=== PATIENT | female | born 1960 | race African-American/Black ===

== ENCOUNTER 2018-03-23 19:52 | Emergency (ER) | payer MEDICARE, MEDICAID ==
[~2018-03-23] VITALS: Ht 162.6 cm; Wt 82.0 kg
[2018-03-23] MEDS ORDERED: ACETAMINOPHEN 325MG TABLET PO ONE (22:45)
[2018-03-23] MEDS ORDERED: ACETAMINOPHEN 500MG TABLET PO NR (22:45)
[2018-03-23] MEDS ORDERED: METHOCARBAMOL 500MG TABLET PO ONE (22:45)
[2018-03-24 00:07] VITALS: BP 132/79
== END 2018-03-24 00:15 | disposition home or self-care (01) ==
LOC: ER 20:20
DX: S46.812A Strain of other muscles, fascia and tendons at shoulder and upper arm level, left arm, initial encounter (principal); F12.10 Cannabis abuse, uncomplicated; V43.52XA Car driver injured in collision with other type car in traffic accident, initial encounter; Y93.89 Activity, other specified; Y99.8 Other external cause status; Y92.89 Other specified places as the place of occurrence of the external cause; Z87.891 Personal history of nicotine dependence; Z90.49 Acquired absence of other specified parts of digestive tract; Z98.890 Other specified postprocedural states
CPT/HCPCS: 99283

== ENCOUNTER 2019-11-24 11:11 | Emergency (ER) | payer MEDICARE, MEDICAID ==
[~2019-11-24] VITALS: Ht 162.6 cm; Wt 78.0 kg
[2019-11-24] MEDS ORDERED: HYDR-4009 MT (11:39)
[2019-11-24] MEDS ORDERED: niacin (11:39)
[2019-11-24] MEDS ORDERED: esomeprazole (11:39)
[2019-11-24] MEDS ORDERED: NIAC500T13 MT (11:39)
[2019-11-24] MEDS ORDERED: MAGN400T26 MT (11:39)
[2019-11-24] MEDS ORDERED: GABA-531 MT (11:39)
[2019-11-24] MEDS ORDERED: ONDANSETRON HCL 4MG/2ML INJ IV STA (13:14)
[2019-11-24] MEDS ORDERED: SODIUM CHLORIDE 0.9% 1,000 ML IV ONE (13:14)
[2019-11-24] MEDS ORDERED: FAMOTIDINE 20MG/2ML VIAL IV ONE (13:15)
[2019-11-24 14:24] LABS: BASOPHILS % 1.1 % (0.0-2.0); HEMATOCRIT. 39.6 % (36.0-48.0); HEMOGLOBIN. 13.5 g/dL (12.0-16.0); LYMPHOCYTES % 28.5 % (20.0-50.0); MEAN CORPUSCULAR VOLUME 90.6 fL (81.0-99.0); MEAN PLATELET VOLUME 9.7 fl (7.4-10.4); MONOCYTES % 6.7 % (2.0-8.0); NEUTROPHILS % 62.7 % (40.0-76.0); PLATELET 219 x1000/uL (130-400); RED BLOOD CELL COUNT 4.37 mill/uL (4.2-5.4)
[2019-11-24 14:27] LABS: CHLORIDE 107 mEq/L (98-107)
[2019-11-24 14:34] LABS: ETHANOL BLOOD < 10 mg/dL
[2019-11-24] MEDS ORDERED: IOHEXOL-350 100 ML BOTTLE ONE (15:24)
[2019-11-24 15:30] LABS: CLARITY URINE CLEAR (CLEAR); COLOR URINE YELLOW (YELLOW); KETONES URINE NEGATIVE (NEGATIVE); LEUKOCYTE ESTERASE URINE TRACE (NEGATIVE); NITRITE URINE POSITIVE (NEGATIVE); OCCULT BLOOD URINE NEGATIVE (NEGATIVE); PROTEIN URINE NEGATIVE (NEGATIVE); SPECIFIC GRAVITY URINE 1.061 (1.005-1.030)
[2019-11-24] MEDS ORDERED: KETOROLAC 30MG/ML VIAL IV ONE (15:45)
[2019-11-24 15:54] LABS: *AMPHETAMINES SCREEN URINE NEGATIVE (NEGATIVE); *BARBITURATES SCREEN URINE NEGATIVE (NEGATIVE); *COCAINE SCREEN URINE NEGATIVE (NEGATIVE)
[2019-11-24 15:55] LABS: *BENZODIAZEPINES SCREEN URINE NEGATIVE (NEGATIVE); CANNABINOID URINE SCREEN PRESUMTIVE POSITIVE (NEGATIVE); METHADONE URINE SCREEN NEGATIVE (NEGATIVE); OPIATES URINE SCREEN NEGATIVE (NEGATIVE); PHENCYCLIDINE URINE SCREEN NEGATIVE (NEGATIVE)
[2019-11-24 16:52] VITALS: BP 112/69
== END 2019-11-24 16:53 | disposition home or self-care (01) ==
LOC: ER 11:37
DX: N39.0 Urinary tract infection, site not specified (principal)
CPT/HCPCS: 36415; 71045; 71275; 74174; 80053; 80305; 80320; 81003; 83690; 83880; 84484; 85025; 93005; 96374; 96375; 99284; J1885; J2405; J3490; J7030; Q9967; G0480

== ENCOUNTER 2022-05-05 17:03 | Emergency (ER) | payer MEDICARE, MEDICAID ==
[~2022-05-05] VITALS: Ht 162.6 cm; Wt 72.0 kg
[~2022-05-05 17:03] MED LIST: GABA-532 MT; HYDR-4009 MT; MAGN400T26 MT; NIAC-49 MT; esomeprazole; niacin
[2022-05-05] MEDS ORDERED: KETOROLAC 30MG/ML VIAL IV STA (21:37)
[2022-05-05] MEDS ORDERED: ONDANSETRON HCL 4MG/2ML INJ IV STA (21:37)
[2022-05-05] MEDS ORDERED: SODIUM CHLORIDE 0.9% 1,000 ML IV ONE (21:45)
[2022-05-05 22:16] LABS: CLARITY URINE CLOUDY (CLEAR); COLOR URINE DARK YELLOW (YELLOW); KETONES URINE 1+ (NEGATIVE); LEUKOCYTE ESTERASE URINE TRACE (NEGATIVE); NITRITE URINE NEGATIVE (NEGATIVE); OCCULT BLOOD URINE NEGATIVE (NEGATIVE); PH URINE 6.5 (4.5-8.0); PROTEIN URINE TRACE (NEGATIVE); SPECIFIC GRAVITY URINE 1.029 (1.005-1.030)
[2022-05-05 23:28] LABS: BASOPHILS % 0.6 % (0.0-2.0); EOSINOPHILS % 1.4 % (0.0-5.0); HEMATOCRIT. 38.8 % (36.0-48.0); HEMOGLOBIN. 12.8 g/dL (12.0-16.0); LYMPHOCYTES % 21.8 % (20.0-50.0); MEAN CORPUSCULAR HEMOGLOBIN 30.5 pg (28.0-32.0); MEAN CORPUSCULAR VOLUME 92.5 fL (81.0-99.0); MEAN PLATELET VOLUME 8.3 fl (7.4-10.4); MONOCYTES % 6.4 % (2.0-8.0); NEUTROPHILS % 69.8 % (40.0-76.0); PLATELET 199 x1000/uL (130-400)
[2022-05-05 23:30] LABS: CHLORIDE 109 mEq/L (98-107)
[2022-05-06] MEDS ORDERED: ONDA4TAB50 MT (01:18)
[2022-05-06 03:00] VITALS: BP 133/76
[2022-05-06] MEDS ORDERED: METR375C2 MT (03:30)
== END 2022-05-06 04:20 | disposition home or self-care (01) ==
LOC: ER 17:03
DX: N30.00 Acute cystitis without hematuria (principal); F12.10 Cannabis abuse, uncomplicated; Z87.19 Personal history of other diseases of the digestive system; Z98.890 Other specified postprocedural states
CPT/HCPCS: 36415; 74176; 80053; 81003; 83690; 85025; 93005; 96361; 96374; 96375; 99291; J1885; J2405; J7030

== ENCOUNTER 2023-10-25 05:48 | Emergency (ER) | payer BC, MEDICAID ==
[~2023-10-25] VITALS: Ht 162.6 cm; Wt 61.2 kg
[~2023-10-25 05:48] MED LIST changes: +METR375C2 MT; +ONDA4TAB50 MT
[2023-10-25 06:11] VITALS: O2SAT 97
[2023-10-25 07:37] LABS: BASOPHILS % 0.5 % (0.0-2.0); HEMATOCRIT. 39.2 % (36.0-48.0); HEMOGLOBIN. 12.9 g/dL (12.0-16.0); LYMPHOCYTES % 12.6 % (20.0-50.0); MEAN CORPUSCULAR HEMOGLOBIN 31.3 pg (28.0-32.0); MEAN CORPUSCULAR VOLUME 94.9 fL (81.0-99.0); MEAN PLATELET VOLUME 9.1 fl (7.4-10.4); MONOCYTES % 9.1 % (2.0-8.0); NEUTROPHILS % 77.8 % (40.0-76.0); PLATELET 197 x1000/uL (130-400); RED BLOOD CELL COUNT 4.13 mill/uL (4.2-5.4); RED CELL DISTRIBUTION WIDTH 14.3 % (11.6-14.6); WHITE BLOOD COUNT 5.5 x1000/uL (4.5-11.0)
[2023-10-25 08:11] LABS: ALANINE AMINOTRANSFERASE 26 IU/L (10-49); ALBUMIN 4.5 g/dL (3.2-4.8); ASPARTATE AMINOTRANSFERASE 36 IU/L (<34); BILIRUBIN TOTAL 0.4 mg/dL (0.1-1.0); CALCIUM 9.7 mg/dL (8.7-10.4); CARBON DIOXIDE 26 mEq/L (21-32); CHLORIDE 104 mEq/L (98-107); CREATININE 0.7 mg/dL (0.6-1.0); GLUCOSE 105 mg/dL (70-105); POTASSIUM 3.6 mEq/L (3.5-5.1); PROTEIN TOTAL 7.7 g/dL (6.0-8.3); SODIUM 140 mEq/L (136-145); UREA NITROGEN BLOOD 8 mg/dL (9-23)
[2023-10-25] MEDS ORDERED: ONDANSETRON 4MG ODT PO ONE (08:30)
[2023-10-25 09:00] LABS: CLARITY URINE CLEAR (CLEAR); COLOR URINE DARK YELLOW (YELLOW); GLUCOSE URINE NEGATIVE (NEGATIVE); KETONES URINE 4+ (NEGATIVE); LEUKOCYTE ESTERASE URINE TRACE (NEGATIVE); NITRITE URINE NEGATIVE (NEGATIVE); OCCULT BLOOD URINE TRACE (NEGATIVE); PROTEIN URINE 1+ (NEGATIVE); SPECIFIC GRAVITY URINE 1.029 (1.005-1.030)
[2023-10-25 09:42] LABS: MUCUS URINE 1+ /lpf (< = 2+); SQUAMOUS EPITHELIAL CELL URINE 1+ /lpf (RARE/1+)
[2023-10-25 09:43] LABS: BACTERIA URINE TRACE; RBC URINE 0-2 /hpf (0-2); WBC URINE 0-2 /hpf (0-2)
[2023-10-25] MEDS ORDERED: NITR-87 MT (09:57)
[2023-10-25] MEDS ORDERED: ONDA4TAB11 PO (09:57)
[2023-10-25 10:19] VITALS: BP 122/70; PULSE 82; RESP 18; TEMP 98.5
== END 2023-10-25 10:21 | disposition home or self-care (01) ==
LOC: ER 05:48
DX: U07.1 COVID-19 (principal); K80.20 Calculus of gallbladder without cholecystitis without obstruction; N39.0 Urinary tract infection, site not specified; F12.90 Cannabis use, unspecified, uncomplicated; Z90.49 Acquired absence of other specified parts of digestive tract
CPT/HCPCS: 99284; 74176; 87426; 80053; 81003; 83690; 85025; 36415; Q0162; C9803